=== PATIENT | female | born 1970 | race Caucasian/White ===

== ENCOUNTER 2016-09-14 11:56 | Emergency (ER) | payer OTHER ==
[~2016-09-14] VITALS: Ht 149.9 cm; Wt 54.6 kg
[2016-09-14 13:39] VITALS: BP 140/82
== END 2016-09-14 13:40 | disposition home or self-care (01) ==
LOC: ED 11:56
DX: G89.29 Other chronic pain (principal); M54.2 Cervicalgia; E78.00 Pure hypercholesterolemia, unspecified; Z88.4 Allergy status to anesthetic agent
CPT/HCPCS: J3010

== ENCOUNTER 2016-10-04 13:39 | Emergency (ER) | payer OTHER ==
[~2016-10-04] VITALS: Ht 149.9 cm; Wt 54.1 kg
[2016-10-04 16:49] VITALS: BP 128/90
== END 2016-10-04 16:49 | disposition home or self-care (01) ==
LOC: ED 13:39
DX: J20.9 Acute bronchitis, unspecified (principal); E78.5 Hyperlipidemia, unspecified; Z88.6 Allergy status to analgesic agent
CPT/HCPCS: J7512; J7613; J7644